=== PATIENT | female | born 1955 | race Caucasian/White ===

== ENCOUNTER 2019-01-16 07:16 | Emergency (ER) | payer BC ==
--- NOTE | 2019-01-16 07:24 | UC ---
Hip/Pelvis Pain - HPI Summary HPI Summary: CHIEF COMPLAINT and HPI: This is a 63 yo female who slipped and fell on left buttocks/hip last night.. This condition began last night. Pain is described as moderate left hip, pelvis area and difficult to walk. No urinary, abdominal or spine complaints. Pain: moderate; left hip and inferior pelvis bone. Medications & Allergies Reviewed. Nurses Note Reviewed. Hypertension status reviewed. Visit History Reviewed. Chronic conditions and problem list reviewed. Information contributory to present complaint: hx of lumbar compression fx; runner; left meniscal injury. - History Of Current Complaint Stated Complaint: PELVIS PAIN Time Seen by Provider: 01/16/19 07:22 - Allergies/Home Medications Allergies/Adverse Reactions: Allergies Allergy/AdvReac Type Severity Reaction Status Date / Time Iodinated Contrast- Oral and Allergy Swelling Verified 01/16/19 07:46 IV Dye Of Face,Lips,& Throat Latex, Natural Rubber Allergy Anaphylatic Verified 01/16/19 07:46 Shock Penicillins Allergy Rash Verified 01/16/19 07:46 prochlorperazine Allergy See Comment Verified 01/16/19 07:46 [From Compazine] PMH/Surg Hx/FS Hx/Imm Hx - Additional Past Medical History Additional PMH: PAST MEDICAL HISTORY: stents; hypothyroid; neuropathy FAMILY HISTORY: Positive history of: -HYPTERTENSION -CARDIOVASCULAR DISEASE SOCIAL HISTORY: Employment: [employer] nurse. Family Environment: Habits: non smoker - Surgical History Surgical History: Yes Surgery Procedure, Year, and Place: TONSILECTOMY. APPENDECTOMY. C SECTIONS X2 , 2 STENTS(CARDIAC) MULTILINK VISION AND MINI VISIONSTENTS ARE CLEARED FOR UP TO 3T - CONDITIONAL 5 PATIENT HAS CARDS ALSO Review of Systems All Other Systems Reviewed And Are Negative: Yes Constitutional: Positive: Negative Respiratory: Positive: Negative. Negative: Shortness Of Breath Cardiovascular: Positive: Negative. Negative: Palpitations Gastrointestinal: Positive: Negative. Negative: Abdominal Pain, Vomiting, Diarrhea Genitourinary: Positive: Negative Musculoskeletal: Positive: Myalgia, Other: - left pelvis and hip discomfort; worse with movement Is Patient Immunocompromised?: No Physical Exam - Summary Physical Exam Summary: Appearance: The patient is well-appearing, is in no pain or distress, and is well-nourished. Eyes: Conjunctiva are clear. Pupils are equal and reactive to light and accommodation. Extra ocular muscle movement is intact. ENT: The hearing is grossly normal, the pharynx is normal, and the TMs are normal. There is no muffled or hoarse voice. No stridor. Neck: The neck is supple and there is no lymphadenopathy. Respiratory: The chest is nontender to palpation and without crepitus. The lungs are clear, there are normal breath sounds, and there is no respiratory distress. No wheezes, rales or rhonchi. Cardiovascular: Heart sounds reveal a regular rate and rhythm. There are no clicks, rubs or murmurs. There are no carotid bruits or thrills. Circulation is grossly intact. Abdomen: The abdomen is soft and nontender. There is no organomegaly. Bowel sounds are present and within normal limits. No point tenderness at McBurneys point. Musculoskeletal: Strength is intact. The patient moves all extremities. Significant pain inferior left pelvis; increased with ambulation. Pain with ambulation. Pain with palpation localized to the inferior pelvic bone on the left. Neurological: The patient is alert. Motor and sensory are examination grossly intact. Speech is normal. Psychological: The patient displays age appropriate behavior Skin: Negative for rashes. Triage Information Reviewed: Yes Vital Signs Reviewed: Yes Hip Injury Course/Dx - Course Course Of Treatment: MEDICAL DECISION MAKING & PLAN: 63-year-old female who reports falling last night onto the area of the left buttocks and hip. She can. Complains of significant discomfort with ambulation , particularly the inferior aspect of the left pelvis. She has no complaints of spine injury, bladder injury or back injury. X-rays negative for fracture of the pelvis or left hip. Differential is fracture versus contusion. Diagnosis is contusion of the left inferior pelvis. This appears to be an isolated injury. The patient will use crutches and a walker. Will rest and use ice, heat, and acetaminophen and ibuprofen. She will slowly advance weight- bearing as tolerated. She will be rechecked if there is any sign of urinary discoloration or new disability or numbness. MEDICATIONS REVIEWED: Medications have been included in the original chart and reviewed. HYPERTENSION STATUS REVIEWED. x ray: NO RADIOGRAPHIC EVIDENCE FOR HIP FRACTURE. X-RAYS MAY BE NEGATIVE WITH NONDISPLACED HIP FRACTURE, IF THERE IS PERSISTENT CLINICAL CONCERN, RECOMMEND CONSIDERATION OF MRI. IN THE SETTING OF CONTRAINDICATION TO MRI OR LIMITATION IN EMERGENT ACCESS TO MRI, CT WOULD BE SUGGESTED. - Differential Dx/Diagnosis Differential Diagnosis/HQI/PQRI: Dislocation, Fracture, Sprain, Strain Provider Diagnosis: Contusion of pelvis Discharge - Sign-Out/Discharge Documenting (check all that apply): Patient Departure All imaging exams completed and their final reports reviewed: Yes - Discharge Plan Condition: Stable Disposition: HOME Patient Education Materials: Hip Contusion (ED) Forms: *Work Release Referrals: Shoaib Garcia MD [Primary Care Provider] - Additional Instructions: WE DISCUSSED: PLEASE SEEK CARE AT THE EMERGENCY DEPARTMENT IF SYMPTOMS WORSEN OR IF NEW SYMPTOMS DEVELOP. FOLLOW UP WITH YOUR PRIMARY CARE PHYSICIAN IF CONDITION CONTINUES BEYOND 3 DAYS WITHOUT IMPROVEMENT. We are open from 7 a.m. to 10 p.m. Call us with any questions or concerns. YOUR DIAGNOSIS IS: contusion of the inferior left pelvis Note that if you have continued an MRI is recommended. YOUR PRESCRIPTION RECOMMENDATION IS: none OTHER INSTRUCTIONS: warm moist heat in the morning or to loosen muscles; ice to area for acute pain. Rest; use crutches and walker; no work until reduced pain. Work note until January 19, 2019. Slowly advance weight bearing as tolerated. Hypertension Discharge Instructions: Your blood pressure reading today was 129/79, indicating HYPERTENSION. Follow- up with your primary care provider within 4 weeks for blood pressure check and appropriate recommendations and treatment, as needed. For pain: Ibuprofen (Motrin and other brand names) 400-600mg PLUS acetaminophen (Tylenol and other brand names) 500mg - 1000mg every 8 hours. Maximum is 3 doses a day. If this dosage is required for more than 5 days, you should re-check with your doctor. The combination of these two over-the- counter medications can be more effective than each one taken alone. Please check with the pharmacist if you have questions about your allergies to these medications. - Billing Disposition and Condition Condition: STABLE Disposition: Home
[2019-01-16 07:41] VITALS: BP 129/79
== END 2019-01-16 08:36 | disposition home or self-care (01) ==
LOC: UCEAST 07:16
DX: S30.0XXA Contusion of lower back and pelvis, initial encounter (principal); W01.0XXA Fall on same level from slipping, tripping and stumbling without subsequent striking against object, initial encounter; Y92.9 Unspecified place or not applicable; Z88.0 Allergy status to penicillin; Z88.8 Allergy status to other drugs, medicaments and biological substances; Z91.040 Latex allergy status
CPT/HCPCS: 99212; G0463